=== PATIENT | male | born 1970 | race Caucasian/White ===

== ENCOUNTER 2017-09-15 11:08 | Emergency (ER) | payer BC ==
[2017-09-15 12:58] LABS: ABS Basophils 0.1 10^3/ul (0-0.2); ABS Eosinophils 0.2 10^3/ul (0-0.6); ABS Lymphocytes 1.6 10^3/ul (1.0-4.8); ABS Neutrophils 6.4 10^3/ul (1.5-7.7); ABS Nucleated RBC 0 10^3/ul; Eosinophil % 2.6 % (0-6); Hematocrit 46 % (42-52); Hemoglobin 15.8 g/dl (14.0-18.0); Lymphocyte % 17.2 % (25-47); Mean Corpuscular HGB Conc 34 g/dl (31-36); Mean Corpuscular Hemoglobin 31 pg (27-31); Mean Corpuscular Volume 89 fL (80-94); Mean Platelet Volume 11 um3 (7.4-10.4); Nucleated Red Blood Cells % 0.1; Platelet Count 256 10^3/ul (150-450); Red Blood Count 5.17 10^6/ul (4.0-5.4); Red Cell Distribution Width 13 % (10.5-15); White Blood Count 9.3 10^3/ul (3.5-10.8)
[2017-09-15 13:09] LABS: INR 0.94 (0.77-1.02)
[2017-09-15 13:12] LABS: EGFR Non-African American 76.9 (>60)
[2017-09-15] MEDS ORDERED: NS 0.9% 1000 ML* 1,000 ML BOLUS SCH (13:15)
[2017-09-15] MEDS ORDERED: Iohexol 300* (CONTRAST) 10 ML SDV IV ONE (13:21)
[2017-09-15 13:55] LABS: Urine Appearance Clear; Urine Blood Negative (Negative); Urine Color Yellow; Urine Ketones Negative (Negative); Urine Protein Negative (Negative); Urine Specific Gravity 1.015 (1.010-1.030); Urine Urobilinogen Negative (Negative)
--- NOTE | 2017-09-15 15:19 | RAD ---
INDICATION: Fall. Rib pain COMPARISON: CT abdomen pelvis June 02, 2015 TECHNIQUE: Axial source images were obtained from the thoracic inlet to the symphysis pubis following administration of oral and intravenous contrast. 148 mL Omnipaque 300 was utilized. Coronal and sagittal reconstructed images were acquired. CHEST FINDINGS: Neck/thyroid: The visualized neck to include the thyroid appear normal. Chest wall: There is a nondisplaced fracture of the lateral left ninth rib. There is no supraclavicular, infraclavicular, or axillary lymphadenopathy. Lungs : There are no pulmonary parenchymal masses or infiltrates. There is mild linear change right lung base which is most consistent with atelectasis. There is no pneumothorax. The pulmonary interstitium appears normal. There are no endobronchial lesions. Cardiomediastinal structures: The heart is normal in size. There is no pericardial effusion. There is no evidence of aortic aneurysm or dissection. The pulmonary vessels appear normal. There is no mediastinal or hilar adenopathy. The esophagus appears normal. Pleura : There are no pleural-based masses or effusions. ABDOMINAL/PELVIC FINDINGS: Liver: The liver is enlarged with findings of hepatic steatosis. There are no masses. There is no ductal dilatation. Gallbladder: There are no calcified gallstones. There is no evidence of wall thickening or pericholecystic fluid. Spleen: The spleen is normal in size. There are no masses. Pancreas: There is no evidence of pancreatic mass or ductal dilatation. Adrenal glands: There is no evidence of adrenal mass. Kidneys: The kidneys are normal in size and position. There are prompt nephrograms and there is prompt excretion bilaterally. There are no renal parenchymal masses. There is no evidence of nephrolithiasis. Adenopathy: There is no evidence of adenopathy by size criteria. Fluid collections: There are no free or localized fluid collections. Vessels:The aorta and IVC appear normal GI tract: There are no acute CT bowel findings. There is no obstruction. The stomach and small bowel appear normal. The lower GI tract is normal. The cecum, ileocecal valve, and terminal ileum appear normal. The appendix is visualized and appear normal. Pelvic organs: The prostate and seminal vesicles appear normal Bladder: There are no bladder masses. Abdominal and pelvic soft tissues: The extraperitoneal abdominal and pelvic soft tissues appear normal.. Osseous structures: There are no additional acute osseous findings. There is chronic L5 spondylolysis with a 3 mm anterolisthesis, unchanged IMPRESSION: 1. Nondisplaced lateral left ninth rib fracture. 2. Mild right basilar atelectasis. Lungs otherwise clear. No pneumothorax. 3. Hepatomegaly with hepatic steatosis. 4. No evidence of free fluid or traumatic visceral injury. 5. Chronic L5 spondylolysis
[2017-09-15 17:03] VITALS: BP 132/90
--- NOTE | 2017-09-15 21:55 | ED ---
Trung Santana Tiffany, scribed for Paola Kincaid MD on 09/15/17 at 1316 . Complex/Multi-Sys Presentation - HPI Summary HPI Summary: The patient is a 47 year old M presenting to [facility] accompanied by father with a chief complaint of left-sided flank pain s/p slipping on ice, falling on his left ribs, and hitting his left elbow yesterday. Symptoms aggravated by nothing. Symptoms alleviated by nothing. Patient denies head trauma, fever, shortness of breath, vomiting, left elbow pain, and coughing up blood. The patient had an x-ray from [facility]. He says that they found fluid underneath his right lung. He presented to the ED today to make sure his pain is due to the fall, and not due to his history of fatty liver. The patient takes medication for his hypothyroidism and receives monthly testosterone shots. His primary care provider is Dr. Moran. - History Of Current Complaint Chief Complaint: EDTraumaMultiple Time Seen by Provider: 09/15/17 12:31 Hx Obtained From: Patient Onset/Duration: Lasting Days - Since yesterday, Still Present Aggravating Factor(s): Nothing Alleviating Factor(s): Nothing Associated Signs And Symptoms: Positive: Other - NEGATIVE: head trauma, fever, shortness of breath, vomiting, left elbow pain, and coughing up blood - Allergies/Home Medications Allergies/Adverse Reactions: Allergies Allergy/AdvReac Type Severity Reaction Status Date / Time No Known Allergies Allergy Verified 09/15/17 12:43 Home Medications: Home Medications Levothyroxine TAB* [Synthroid TAB*] 100 mcg PO DAILY 09/15/17 [History Confirmed 09/15/17] Testosterone Cypionate 200 mg IM MONTHLY 09/15/17 [History Confirmed 09/15/17] PMH/Surg Hx/FS Hx/Imm Hx Previously Healthy: No Endocrine/Hematology History: Reports: Hx Thyroid Disease - Hypo Cardiovascular History: Denies: Hx Congestive Heart Failure, Hx Hypertension GI History: Reports: Other GI Disorders - Fatty liver Infectious Disease History: No Infectious Disease History: Reports: Hx Hepatitis - Heptatits C-received Harvoni treatment Denies: Traveled Outside the [place] in Last 30 Days - Family History Known Family History: Positive: Cardiac Disease - Father, Hypertension - Father , Diabetes - Father - Social History Alcohol Use: see comment Alcohol Amount: has not drank since 06/01/15 Hx Substance Use: No Substance Use Type: Reports: None Hx Tobacco Use: Yes Smoking Status (MU): Former Smoker Review of Systems Negative: Fever Negative: Shortness Of Breath, Cough Negative: Vomiting Positive: Other - Left-sided flank pain; NEGATIVE: head trauma, left elbow pain All Other Systems Reviewed And Are Negative: Yes Physical Exam - Summary Physical Exam Summary: Appearance: Ill-appearing, moderate pain distress, Well-nourished Skin: Erythematous, circular rash on bilateral dorsal hand and palm Head: Normal Head/Face inspection Eyes: Conjunctiva clear ENT: Normal inspection Neck: Supple, no nodes, no JVD. Respiratory: Lungs clear, Normal breath sounds, no respiratory distress Cardio: RRR, No murmur, pulses normal, brisk capillary refill Abdomen: soft, nontender Bowel sounds: present Musculoskeletal: Strength Intact/ ROM intact. No calf tenderness. No edema. Neuro: Alert, muscle tone normal, facial symmetry, speech normal, sensory/motor intact Psychological: Normal Triage Information Reviewed: Yes Vital Signs On Initial Exam: Initial Vitals Temp Pulse Resp BP Pulse Ox 97.8 F 101 20 164/99 98 09/15/17 11:10 09/15/17 11:10 09/15/17 11:10 09/15/17 11:10 09/15/17 11:10 Vital Signs Reviewed: Yes Diagnostics - Vital Signs Vital Signs Temp Pulse Resp BP Pulse Ox 09/15/17 11:10 97.8 F 101 20 164/99 98 - Laboratory Lab Results: Lab Results 09/15/17 09/15/17 09/15/17 Range/Units 12:37 12:37 12:37 WBC 9.3 (3.5-10.8) 10^3/ul RBC 5.17 (4.0-5.4) 10^6/ul Hgb 15.8 (14.0-18.0) g/dl Hct 46 (42-52) % MCV 89 (80-94) fL MCH 31 (27-31) pg MCHC 34 (31-36) g/dl RDW 13 (10.5-15) % Plt Count 256 (150-450) 10^3/ul MPV 11 H (7.4-10.4) um3 Neut % (Auto) 68.4 (38-83) % Lymph % (Auto) 17.2 L (25-47) % [place] % (Auto) 11.0 H (1-9) % Eos % (Auto) 2.6 (0-6) % Baso % (Auto) 0.8 (0-2) % Absolute Neuts (auto) 6.4 (1.5-7.7) 10^3/ul Absolute Lymphs (auto) 1.6 (1.0-4.8) 10^3/ul Absolute Monos (auto) 1.0 H (0-0.8) 10^3/ul Absolute Eos (auto) 0.2 (0-0.6) 10^3/ul Absolute Basos (auto) 0.1 (0-0.2) 10^3/ul Absolute Nucleated RBC 0 10^3/ul Nucleated RBC % 0.1 INR (Anticoag Therapy) 0.94 (0.77-1.02) Sodium 135 (133-145) mmol/L Potassium 4.4 (3.5-5.0) mmol/L Chloride 102 (101-111) mmol/L Carbon Dioxide 24 (22-32) mmol/L Anion Gap 9 (2-11) mmol/L BUN 20 (6-24) mg/dL Creatinine 1.04 (0.67-1.17) mg/dL Est GFR ( Amer) 98.9 (>60) Est GFR (Non-Af Amer) 76.9 (>60) BUN/Creatinine Ratio 19.2 (8-20) Glucose 99 (70-100) mg/dL Lactic Acid (0.5-2.0) mmol/L Calcium 9.8 (8.6-10.3) mg/dL Total Bilirubin 0.40 (0.2-1.0) mg/dL AST 21 (13-39) U/L ALT 28 (7-52) U/L Alkaline Phosphatase 57 (34-104) U/L Total Creatine Kinase 137 (10-223) U/L Troponin I 0.01 (<0.04) ng/mL Total Protein 7.7 (6.4-8.9) g/dL Albumin 4.5 (3.2-5.2) g/dL Globulin 3.2 (2-4) g/dL Albumin/Globulin Ratio 1.4 (1-3) Amylase 36 (29-103) U/L Lipase 48 (11.0-82.0) U/L Urine Color Urine Appearance Urine pH (5-9) Ur Specific [place] (1.010-1.030) Urine Protein (Negative) Urine Ketones (Negative) Urine Blood (Negative) Urine Nitrate (Negative) Urine Bilirubin (Negative) Urine Urobilinogen (Negative) Ur Leukocyte Esterase (Negative) Urine Glucose (Negative) 09/15/17 09/15/17 Range/Units 12:37 13:45 WBC (3.5-10.8) 10^3/ul RBC (4.0-5.4) 10^6/ul Hgb (14.0-18.0) g/dl Hct (42-52) % MCV (80-94) fL MCH (27-31) pg MCHC (31-36) g/dl RDW (10.5-15) % Plt Count (150-450) 10^3/ul MPV (7.4-10.4) um3 Neut % (Auto) (38-83) % Lymph % (Auto) (25-47) % [place] % (Auto) (1-9) % Eos % (Auto) (0-6) % Baso % (Auto) (0-2) % Absolute Neuts (auto) (1.5-7.7) 10^3/ul Absolute Lymphs (auto) (1.0-4.8) 10^3/ul Absolute Monos (auto) (0-0.8) 10^3/ul Absolute Eos (auto) (0-0.6) 10^3/ul Absolute Basos (auto) (0-0.2) 10^3/ul Absolute Nucleated RBC 10^3/ul Nucleated RBC % INR (Anticoag Therapy) (0.77-1.02) Sodium (133-145) mmol/L Potassium (3.5-5.0) mmol/L Chloride (101-111) mmol/L Carbon Dioxide (22-32) mmol/L Anion Gap (2-11) mmol/L BUN (6-24) mg/dL Creatinine (0.67-1.17) mg/dL Est GFR ( Amer) (>60) Est GFR (Non-Af Amer) (>60) BUN/Creatinine Ratio (8-20) Glucose (70-100) mg/dL Lactic Acid 1.2 (0.5-2.0) mmol/L Calcium (8.6-10.3) mg/dL Total Bilirubin (0.2-1.0) mg/dL AST (13-39) U/L ALT (7-52) U/L Alkaline Phosphatase (34-104) U/L Total Creatine Kinase (10-223) U/L Troponin I (<0.04) ng/mL Total Protein (6.4-8.9) g/dL Albumin (3.2-5.2) g/dL Globulin (2-4) g/dL Albumin/Globulin Ratio (1-3) Amylase (29-103) U/L Lipase (11.0-82.0) U/L Urine Color Yellow Urine Appearance Clear Urine pH 5.0 (5-9) Ur Specific [place] 1.015 (1.010-1.030) Urine Protein Negative (Negative) Urine Ketones Negative (Negative) Urine Blood Negative (Negative) Urine Nitrate Negative (Negative) Urine Bilirubin Negative (Negative) Urine Urobilinogen Negative (Negative) Ur Leukocyte Esterase Negative (Negative) Urine Glucose Negative (Negative) Result Diagrams: 09/15/17 12:37 09/15/17 12:37 Lab Statement: Any lab studies that have been ordered have been reviewed, and results considered in the medical decision making process. - CT Chest/Abd/Pel CT Interpretation Completed By: Radiologist - 1. Nondisplaced lateral left ninth rib fracture. 2. Mild right basilar atelectasis. Lungs otherwise clear. No pneumothorax. 3. Hepatomegaly with hepatic steatosis. 4. No evidence of free fluid or traumatic visceral injury. 5. Chronic L5 spondylolysis. ED physician has reviewed this radiology report. - EKG 11:58 Cardiac Rate: NL - 85 BPM EKG Rhythm: Sinus Rhythm ST Segment: Non-Specific Ectopy: None EKG Interpretation: nml AVIVCT, nml QTc, and nml axis. EKG Comparison: No Significant Change - From 06/05/15 Complex Multi-Symp Course/Dx Course Of Treatment: Allergies noted. High blood pressure noted. Patient medications reviewed this visit. Normal EKG. CT Chest/Abd/Pel reveals nondisplaced lateral left ninth rib fracture. Patient will be discharged. The patient is agreeable with this plan. Discharge - Discharge Plan Condition: Stable Disposition: HOME Prescriptions: HYDROcodone/ACETAMIN 5-325 MG* [[place]udson 5-325 TAB*] 1 tab PO Q4H PRN #[id number] tab MDD 6 PRN Reason: Pain Patient Education Materials: Rib Fracture (ED) Referrals: Kathy Moran MD [Primary Care Provider] - Additional Instructions: We have given you a copy of your CT report. You have a 9th rib fracture. Return to the ER if you have new or worsening symptoms. The documentation as recorded by the Trung lee Tiffany accurately reflects the service I personally performed and the decisions made by , Paola Kincaid MD.
== END 2017-09-15 17:02 | disposition home or self-care (01) ==
LOC: ED 11:08
DX: R10.9 Unspecified abdominal pain (principal); S22.32XA Fracture of one rib, left side, initial encounter for closed fracture; W00.0XXA Fall on same level due to ice and snow, initial encounter; Y92.9 Unspecified place or not applicable; J98.11 Atelectasis; K76.0 Fatty (change of) liver, not elsewhere classified; Z87.891 Personal history of nicotine dependence
CPT/HCPCS: 36415; 71260; 74177; 80053; 81003; 82150; 82550; 83605; 83690; 84484; 85025; 85610; 93005; 96360; 99283; Q9967

== ENCOUNTER 2018-07-08 14:35 | Emergency (ER) | payer BC ==
[2018-07-08 15:22] LABS: ABS Basophils 0.1 10^3/ul (0-0.2); ABS Eosinophils 0.2 10^3/ul (0-0.6); ABS Lymphocytes 1.9 10^3/ul (1.0-4.8); ABS Monocytes 0.8 10^3/ul (0-0.8); ABS Neutrophils 6.6 10^3/ul (1.5-7.7); ABS Nucleated RBC 0 10^3/ul; Eosinophil % 1.6 %; Hematocrit 49 % (42-52); Hemoglobin 16.8 g/dl (14.0-18.0); Lymphocyte % 20.2 %; Mean Corpuscular HGB Conc 34 g/dl (31-36); Mean Corpuscular Hemoglobin 31 pg (27-31); Mean Corpuscular Volume 90 fL (80-94); Mean Platelet Volume 10.7 fL (7.4-10.4); Nucleated Red Blood Cells % 0.1; Platelet Count 285 10^3/ul (150-450); Red Cell Distribution Width 14 % (10.5-15); White Blood Count 9.6 10^3/ul (3.5-10.8)
[2018-07-08 15:33] LABS: EGFR Non-African American 74.9 (>60)
[2018-07-08] MEDS ORDERED: Albuterol HFA INHALER* 8 gm MDI INH ONE (16:12)
--- NOTE | 2018-07-08 16:21 | ED ---
Hypertension - HPI Summary HPI Summary: Patient is a 48-year-old male with no significant PMH presenting to the ED with worsening hypertension readings at home. He states he was seen by his PCP who did not initially want to start him on a medication. Over the past week or so he has been having intermittent shortness of breath and today developed some chest tightness. This is nonradiating, rated a 2/10. Denies any diaphoresis, headache, fever, sweats, chills, visual changes, abdominal pain, nausea, vomiting. He is concerned that his hypertension readings are contributory to his symptoms. Family history of father of stent placements and hypertension. No personal cardiac history. He has seen Dr. Saleh in the past for one episode last year for chest pain and has a follow up in 3 weeks. - History of Current Complaint Chief Complaint: EDHypertension Stated Complaint: TIGHTNESS IN HIS CHEST Time Seen by Provider: 07/08/18 14:41 Hx Obtained From: Patient Onset/Duration: Started Hours Ago Timing: Constant Aggravating Factor(s): Nothing Alleviating Factor(s): Nothing Associated Signs & Symptoms: Chest Pain, Anxiety/Stress - Risk Factors Cardiac Risk Factors: Hypertension, Family History - Allergies/Home Medications Allergies/Adverse Reactions: Allergies Allergy/AdvReac Type Severity Reaction Status Date / Time No Known Allergies Allergy Verified 09/15/17 12:43 Home Medications: Home Medications Levothyroxine TAB* [Synthroid TAB*] 125 mcg PO DAILY 07/08/18 [History Confirmed 07/08/18] PMH/Surg Hx/FS Hx/Imm Hx Previously Healthy: Yes Endocrine/Hematology History: Reports: Hx Thyroid Disease - Hypo Cardiovascular History: Denies: Hx Congestive Heart Failure, Hx Hypertension GI History: Reports: Other GI Disorders - Fatty liver - Surgical History Surgery Procedure, Year, and Place: none - Immunization History Hx Pertussis Vaccination: No Immunizations Up to Date: Yes Infectious Disease History: No Infectious Disease History: Reports: Hx Hepatitis - Heptatits C-received Harvoni treatment Denies: Traveled Outside the [place] in Last 30 Days - Family History Known Family History: Positive: Cardiac Disease - Father, Hypertension - Father , Diabetes - Father - Social History Occupation: Employed Full-time Lives: With Family Alcohol Use: see comment Alcohol Amount: no ETOH since 06/01/15 Hx Substance Use: No Substance Use Type: Reports: None Substance Use Comment - Amount & Last Used: none Hx Tobacco Use: Yes Smoking Status (MU): Former Smoker Review of Systems Constitutional: Negative Negative: Fever, Chills, Fatigue, Skin Diaphoresis Positive: Chest Pain. Negative: Palpitations Positive: Shortness Of Breath. Negative: Cough Genitourinary: Negative Positive: no symptoms reported, pain Negative: Arthralgia, Myalgia Skin: Negative All Other Systems Reviewed And Are Negative: Yes Physical Exam Triage Information Reviewed: Yes Vital Signs On Initial Exam: Initial Vitals Temp Pulse Resp BP Pulse Ox 98.8 F 94 18 174/106 98 07/08/18 14:37 07/08/18 14:37 07/08/18 14:37 07/08/18 14:37 07/08/18 14:37 Vital Signs Reviewed: Yes Appearance: Positive: Well-Appearing, Well-Nourished Skin: Positive: Warm, Skin Color Reflects Adequate Perfusion Head/Face: Positive: Normal Head/Face Inspection Eyes: Positive: EOMI, TIMOTEO, Conjunctiva Clear Neck: Positive: No Lymphadenopathy Respiratory/Lung Sounds: Positive: Clear to Auscultation, Breath Sounds Present Cardiovascular: Positive: Pulses are Symmetrical in both Upper and Lower Extremities, S1, S2. Negative: Leg Edema Left, Leg Edema Right Neurological: Positive: Sensory/Motor Intact, Alert, Oriented to Person Place, Time, Speech Normal Psychiatric: Positive: Normal, Affect/Mood Appropriate AVPU Assessment: Alert Diagnostics - Vital Signs Vital Signs Temp Pulse Resp BP Pulse Ox 07/08/18 14:37 98.8 F 94 18 174/106 98 - Laboratory Lab Results: Lab Results 07/08/18 07/08/18 07/08/18 Range/Units 15:09 15:09 15:09 WBC 9.6 (3.5-10.8) 10^3/ul RBC 5.50 H (4.00-5.40) 10^6/ul Hgb 16.8 (14.0-18.0) g/dl Hct 49 (42-52) % MCV 90 (80-94) fL MCH 31 (27-31) pg MCHC 34 (31-36) g/dl RDW 14 (10.5-15) % Plt Count 285 (150-450) 10^3/ul MPV 10.7 H (7.4-10.4) fL Neut % (Auto) 68.8 % Lymph % (Auto) 20.2 % [place] % (Auto) 8.5 % Eos % (Auto) 1.6 % Baso % (Auto) 0.9 % Absolute Neuts (auto) 6.6 (1.5-7.7) 10^3/ul Absolute Lymphs (auto) 1.9 (1.0-4.8) 10^3/ul Absolute Monos (auto) 0.8 (0-0.8) 10^3/ul Absolute Eos (auto) 0.2 (0-0.6) 10^3/ul Absolute Basos (auto) 0.1 (0-0.2) 10^3/ul Absolute Nucleated RBC 0 10^3/ul Nucleated RBC % 0.1 Sodium 134 L (135-145) mmol/L Potassium 4.1 (3.5-5.0) mmol/L Chloride 100 L (101-111) mmol/L Carbon Dioxide 27 (22-32) mmol/L Anion Gap 7 (2-11) mmol/L BUN 14 (6-24) mg/dL Creatinine 1.06 (0.67-1.17) mg/dL Est GFR ( Amer) 90.6 (>60) Est GFR (Non-Af Amer) 74.9 (>60) BUN/Creatinine Ratio 13.2 (8-20) Glucose 93 (70-100) mg/dL Lactic Acid 0.9 (0.5-2.0) mmol/L Calcium 9.8 (8.6-10.3) mg/dL Magnesium 2.2 (1.9-2.7) mg/dL Total Bilirubin 0.80 (0.2-1.0) mg/dL AST 28 (13-39) U/L ALT 36 (7-52) U/L Alkaline Phosphatase 72 (34-104) U/L CK-MB (CK-2) 2.2 (0.6-6.3) ng/mL Troponin I 0.00 (<0.04) ng/mL Total Protein 8.0 (6.4-8.9) g/dL Albumin 4.7 (3.2-5.2) g/dL Globulin 3.3 (2-4) g/dL Albumin/Globulin Ratio 1.4 (1-3) Result Diagrams: 07/08/18 15:09 07/08/18 15:09 Lab Statement: Any lab studies that have been ordered have been reviewed, and results considered in the medical decision making process. Hypertension Course/Dx - Course Course Of Treatment: During the course of treatment, the patient is evaluated for hypertension, chest tightness which developed today and shortness of breath over the past week. Labs obtained which are all WNL including a troponin of 0.00. Chest x-ray obtained which shows no active cardiopulmonary disease. Patient appears well, nondiaphoretic and nontoxic in appearing. Alert and oriented 3. States he is having no pain at this time. Concerned with his hypertension readings. He has had high blood pressure at home for the past month and continues to be reading 175/98 and at one point 190/100. He was also elevated today in the ED at 174/106. While this reading could be due to presence in the emergency room, since he has had multiple high blood pressure readings, he will be started on a high blood pressure medication. Treatment options were explained to patient and he would like to begin on the blood pressure treatment at this time. He is also given an albuterol inhaler for shortness of breath, however his lungs are clear to auscultation on physical exam. He will be discharged home with atypical chest pain, hypertension and shortness of breath. - Diagnoses Differential Diagnosis/HQI PQRI: Hypertension, Hypertensive Urgency Provider Diagnoses: Atypical chest pain, Shortness of breath, Hypertension Discharge - Sign-Out/Discharge Documenting (check all that apply): Patient Departure - Discharge Plan Condition: Stable Disposition: HOME Prescriptions: Lisinopril TAB* [Prinivil TAB 5 MG*] 5 mg PO DAILY #30 tab Patient Education Materials: Lisinopril (By mouth) Referrals: Kathy Moran MD [Primary Care Provider] - Additional Instructions: Please keep your appointment with cardiology and follow-up We will start you on lisinopril 5 mg once daily, take in the morning If you develop any adverse effects or symptoms, return to the ED immediately Please follow-up with your PCP Albuterol inhaler for any shortness of breath - Billing Disposition and Condition Condition: STABLE Disposition: Home
[2018-07-08 16:27] VITALS: BP 168/89
== END 2018-07-08 16:26 | disposition home or self-care (01) ==
LOC: ED 14:35
DX: R07.89 Other chest pain (principal); R06.02 Shortness of breath; I10 Essential (primary) hypertension; E03.9 Hypothyroidism, unspecified; Z87.891 Personal history of nicotine dependence
CPT/HCPCS: 36415; 71046; 80053; 82553; 83605; 83735; 84484; 85025; 93005; 99282; A9270-GY

== ENCOUNTER 2024-01-01 14:30 | Inpatient (IN) ==
[2024-01-01] MEDS: NORMOSOL-R pH 7.4 SEPSIS* BAG 2,120 ML IV ONE (15:40)
[2024-01-01] MEDS: NORMOSOL R PH IV ONE (15:41)
[2024-01-01 16:17] LABS: Hematocrit 46.8 % (38-53); Hemoglobin 16.2 g/dL (13.2-16.3); Mean Corpuscular Hemoglobin 30.1 pg (27-33); Mean Corpuscular Hgb Conc 34.6 g/dL (31-36); Red Blood Count 5.38 10^6/uL (4.06-5.63); Red Cell Distribution Width 13.9 % (12-17); White Blood Count 4.6 10^3/uL (3.6-10.2)
[2024-01-01 16:18] LABS: Activated Partial Thrombo Time 29.1 seconds (26.0-38.0); INR 1.1 (0.83-1.13)
[2024-01-01 16:43] LABS: RBC Parasite Smear No Parasites Seen (No Parasite)
[2024-01-01 16:46] LABS: ABS Lymphocytes 0.2 10^3/uL (1.0-4.8); ABS Monocytes 0.3 10^3/uL (0.0-1.1); ABS Neutrophils 4.2 10^3/uL (1.5-7.6); ABS Nucleated RBC 0.01 10^3/ul; Lymphocyte % 3.3 %; Mean Platelet Volume 11.1 fL (7.5-11.2); Nucleated Red Blood Cells % 0.2 %/100WBC (0.0-0.8); Platelet Count 141 10^3/uL (150-450)
[2024-01-01 17:02] LABS: Urine Appearance Clear; Urine Bilirubin Negative (Negative); Urine Blood 1+ (Negative); Urine Color Yellow; Urine Glucose Negative (Negative); Urine Ketones Negative (Negative); Urine Nitrite Negative (Negative); Urine Protein 1+ (>=30 mg/dL) (Negative); Urine Urobilinogen Negative (Negative)
[2024-01-01 17:04] LABS: Urine Bacteria Absent /HPF (Absent); Urine Red Blood Cell 2+(6-10/hpf) /HPF (0-Trace); Urine Squamous Epithelial Cell Present /HPF (Absent); Urine White Blood Cell Trace(0-5/hpf) /HPF (0-Trace)
[2024-01-01 17:04] LABS: High Sensitivity Troponin 1 Hr 25 pg/mL (<20)
[2024-01-01 17:12] LABS: Albumin 4.4 g/dL (3.2-5.2); Albumin/Globulin Ratio 1.6 (1-3); C Reactive Protein 112.65 mg/L (<8.01); Calcium 9.1 mg/dL (8.6-10.3); Creatinine, Serum 1.52 mg/dL (0.67-1.17); Globulin 2.7 g/dL (2-4); Potassium 3.8 mmol/L (3.5-5.0); Total Bilirubin 1.1 mg/dL (0.2-1.0); Total Protein 7.1 g/dL (6.4-8.9); eGFR CKD-EPI 54.8 (>60)
[2024-01-01] MEDS: Lactated Ringers 1000 ml BAG 1,000 ML IV ONE (20:11)
[2024-01-01] MEDS: ZOSYN 3.375 GM x ONE DOSE over 30 miuntes IV (21:33)
[2024-01-01] MEDS ORDERED: Zosyn per Pharmacy NOTE FOLLOW UP SCH ×2 (22:00)
[2024-01-02] MEDS: ZOSYN 3.375 GM Q8H per EXTENDED INFUSION IV SCH (00:47)
[2024-01-02 06:35] LABS: ABS Lymphocytes 0.5 10^3/uL (1.0-4.8); ABS Monocytes 0.3 10^3/uL (0.0-1.1); ABS Neutrophils 3.6 10^3/uL (1.5-7.6); ABS Nucleated RBC 0.02 10^3/ul; Hematocrit 40.7 % (38-53); Hemoglobin 14.6 g/dL (13.2-16.3); Lymphocyte % 12.1 %; Mean Corpuscular Hgb Conc 35.8 g/dL (31-36); Mean Corpuscular Volume 86.7 fL (80-97); Mean Platelet Volume 11.1 fL (7.5-11.2); Nucleated Red Blood Cells % 0.5 %/100WBC (0.0-0.8); Platelet Count 120 10^3/uL (150-450); Red Blood Count 4.69 10^6/uL (4.06-5.63); Red Cell Distribution Width 13.7 % (12-17); White Blood Count 4.5 10^3/uL (3.6-10.2)
[2024-01-02 06:55] LABS: Albumin 3.7 g/dL (3.2-5.2); Albumin/Globulin Ratio 1.8 (1-3); C Reactive Protein 113.44 mg/L (<8.01); Calcium 7.8 mg/dL (8.6-10.3); Creatinine, Serum 1.4 mg/dL (0.67-1.17); Globulin 2.1 g/dL (2-4); Potassium 3.4 mmol/L (3.5-5.0); Total Bilirubin 0.8 mg/dL (0.2-1.0); Total Protein 5.8 g/dL (6.4-8.9); eGFR CKD-EPI 60.5 (>60)
[2024-01-02] MEDS: Potassium Chlor 20 meq TAB.ER PO ONE (08:08)
[2024-01-02] MEDS: Lactated Ringers 1000 ml BAG 1,000 ML IV SCH (13:16)
[2024-01-02 15:42] LABS: Osmolality Serum 265 mOsm/kg (275-295)
[2024-01-02 15:59] LABS: Anion Gap 9 mmol/L (2-16); Blood Urea Nitrogen 17 mg/dL (6-24); CO2 Carbon Dioxide 24 mmol/L (22-32); Calcium 7.9 mg/dL (8.6-10.3); Chloride 91 mmol/L (101-111); Creatinine, Serum 1.25 mg/dL (0.67-1.17); Glucose 182 mg/dL (70-100); Sodium 124 mmol/L (135-145); eGFR CKD-EPI 69.3 (>60)
[2024-01-02 18:52] LABS: Potassium, Whole Blood 3.9 mmol/L (3.4-4.5)
[2024-01-03] MEDS: Lactated Ringers 1000 ml BAG 1,000 ML IV SCH (01:06)
[2024-01-03 05:58] LABS: Albumin 3.6 g/dL (3.2-5.2); Albumin/Globulin Ratio 1.6 (1-3); Calcium 7.9 mg/dL (8.6-10.3); Creatinine, Serum 1.38 mg/dL (0.67-1.17); Globulin 2.2 g/dL (2-4); Magnesium 1.5 mg/dL (1.9-2.7); Potassium 3.6 mmol/L (3.5-5.0); Total Bilirubin 0.8 mg/dL (0.2-1.0); Total Protein 5.8 g/dL (6.4-8.9); eGFR CKD-EPI 61.5 (>60)
[2024-01-03 06:02] LABS: Hematocrit 41.8 % (38-53); Hemoglobin 14.5 g/dL (13.2-16.3); Mean Corpuscular Hemoglobin 30.3 pg (27-33); Mean Corpuscular Hgb Conc 34.7 g/dL (31-36); Mean Corpuscular Volume 87.3 fL (80-97); Red Blood Count 4.78 10^6/uL (4.06-5.63); Red Cell Distribution Width 13.8 % (12-17); White Blood Count 3.3 10^3/uL (3.6-10.2)
[2024-01-03 07:13] LABS: ABS Lymphocytes 0.2 10^3/uL (1.0-4.8); ABS Monocytes 0.2 10^3/uL (0.0-1.1); Lymphocyte % 6.2 %; Nucleated Red Blood Cells % 0.1 %/100WBC (0.0-0.8); Platelet Count 95 10^3/uL (150-450)
[2024-01-03] MEDS: NS 0.9% 1000 ml BAG 1,000 ML IV ONE (12:38)
[2024-01-03] MEDS: NS 0.9% 500 ml BAG 500 ML IV ONE (14:15)
[2024-01-03] MEDS: Potassium Chlor 20 meq TAB.ER PO ONE (14:17)
[2024-01-03] MEDS: Azithromycin 500 mg/250 ml NS 500 MG/250 ML BAG IVPB SCH (14:22)
[2024-01-03] MEDS: Magnesium Sulf 4 GM/100 ML IV 4,000 MG/100 ML BAG IVPB ONE (15:05)
[2024-01-03] MEDS: Enoxaparin 40 MG/0.4 ML SYR SUBCUT SCH (15:05)
[2024-01-03] MEDS: Iodixanol (CONTRAST) 320 MG/ML 100 ML SDV IV ONE (18:35)
[2024-01-04 06:54] LABS: Hemoglobin 13.4 g/dL (13.2-16.3); Mean Corpuscular Hemoglobin 30.6 pg (27-33); Mean Corpuscular Hgb Conc 35.1 g/dL (31-36); Mean Corpuscular Volume 87.1 fL (80-97); Mean Platelet Volume 11.9 fL (7.5-11.2); Platelet Count 108 10^3/uL (150-450); Red Blood Count 4.37 10^6/uL (4.06-5.63); Red Cell Distribution Width 14.2 % (12-17); White Blood Count 2.1 10^3/uL (3.6-10.2)
[2024-01-04 07:11] LABS: Albumin 3.3 g/dL (3.2-5.2); Albumin/Globulin Ratio 1.7 (1-3); Calcium 7.5 mg/dL (8.6-10.3); Creatinine, Serum 1.06 mg/dL (0.67-1.17); Potassium 3.9 mmol/L (3.5-5.0); Total Bilirubin 0.6 mg/dL (0.2-1.0); Total Protein 5.3 g/dL (6.4-8.9); eGFR CKD-EPI 84.4 (>60)
[2024-01-04] MEDS: Potassium Chlor 10 meq TAB PO ONE (08:28)
[2024-01-04 09:41] LABS: Urine Appearance Clear; Urine Bilirubin Negative (Negative); Urine Blood 3+ (Negative); Urine Color Light-Yellow; Urine Glucose Negative (Negative); Urine Ketones 1+ (Negative); Urine Nitrite Negative (Negative); Urine Protein 1+ (>=30 mg/dL) (Negative); Urine Specific Gravity 1.011 (1.002-1.030); Urine Urobilinogen Negative (Negative); Urine pH 6.5 (5.0-8.0)
[2024-01-04 10:18] LABS: Urine Bacteria Absent /HPF (Absent); Urine Red Blood Cell 3+(>10/hpf) /HPF (0-Trace); Urine White Blood Cell Trace(0-5/hpf) /HPF (0-Trace)
[2024-01-04 13:52] LABS: TSH Ultra Thyroid Stim Horm 1.2 mcIU/mL (0.34-5.60)
[2024-01-04 14:30] LABS: Urine Osmo 414 mOsm/kg (150-1150)
[2024-01-04] MEDS: Iohexol 300 (CONTRAST) 10 ML SDV IV ONE (15:44)
[2024-01-04 16:57] LABS: Anaplasma phagocytophilum Negative (Negative); B. miyamotoi PCR, B Negative (Negative); Babesia divergens/MO-1 Negative (Negative); Babesia ducani Negative (Negative); Ehrlichia chaffeensis Negative (Negative); Ehrlichia ewingii/canis Negative (Negative); Ehrlichia muris eauclairensis Negative (Negative)
[2024-01-04] MEDS: NS 0.9% 1000 ml BAG 1,000 ML IV ONE (20:27)
[2024-01-04] MEDS: cefTRIAXone 1 gm/50 mL D5W 1 GM/50 ML BAG IV SCH (20:29)
[2024-01-05 05:37] LABS: ABS Lymphocytes 0.7 10^3/uL (1.0-4.8); ABS Monocytes 0.3 10^3/uL (0.0-1.1); ABS Neutrophils 1.5 10^3/uL (1.5-7.6); ABS Nucleated RBC 0.02 10^3/ul; Eosinophil % 0.4 %; Hematocrit 39.3 % (38-53); Hemoglobin 13.7 g/dL (13.2-16.3); Lymphocyte % 28.1 %; Mean Corpuscular Hemoglobin 30.7 pg (27-33); Mean Corpuscular Hgb Conc 34.9 g/dL (31-36); Mean Corpuscular Volume 87.8 fL (80-97); Mean Platelet Volume 11.7 fL (7.5-11.2); Nucleated Red Blood Cells % 0.6 %/100WBC (0.0-0.8); Platelet Count 129 10^3/uL (150-450); Red Blood Count 4.47 10^6/uL (4.06-5.63); White Blood Count 2.5 10^3/uL (3.6-10.2)
[2024-01-05 06:18] LABS: Albumin 3.3 g/dL (3.2-5.2); Albumin/Globulin Ratio 1.5 (1-3); C Reactive Protein 76.33 mg/L (<8.01); Calcium 7.9 mg/dL (8.6-10.3); Creatinine, Serum 0.97 mg/dL (0.67-1.17); Globulin 2.2 g/dL (2-4); Magnesium 1.9 mg/dL (1.9-2.7); Potassium 3.5 mmol/L (3.5-5.0); Total Bilirubin 0.5 mg/dL (0.2-1.0); Total Protein 5.5 g/dL (6.4-8.9); eGFR CKD-EPI 93.9 (>60)
[2024-01-05] MEDS: Calcium Carb (TUMS) 500 mg CHEW TAB PO PRN (12:54)
[2024-01-05 13:09] LABS: Chlamydia trachomatis NAA Negative (Negative); Neisseria gonorrhoeae (GC) NAA Negative (Negative)
[2024-01-05] MEDS: Potassium Chlor 20 meq TAB.ER PO ONE (17:27)
[2024-01-06 05:24] LABS: ABS Eosinophils 0.1 10^3/uL (0.0-0.5); ABS Lymphocytes 1.2 10^3/uL (1.0-4.8); ABS Monocytes 0.8 10^3/uL (0.0-1.1); ABS Neutrophils 2.5 10^3/uL (1.5-7.6); ABS Nucleated RBC 0.01 10^3/ul; Eosinophil % 2.1 %; Hematocrit 40.4 % (38-53); Lymphocyte % 26.2 %; Mean Corpuscular Hemoglobin 30.3 pg (27-33); Mean Corpuscular Hgb Conc 34.5 g/dL (31-36); Mean Corpuscular Volume 87.7 fL (80-97); Mean Platelet Volume 10.8 fL (7.5-11.2); Nucleated Red Blood Cells % 0.1 %/100WBC (0.0-0.8); Platelet Count 173 10^3/uL (150-450); Red Blood Count 4.61 10^6/uL (4.06-5.63); Red Cell Distribution Width 14.3 % (12-17); White Blood Count 4.6 10^3/uL (3.6-10.2)
[2024-01-06 05:57] LABS: Albumin 3.6 g/dL (3.2-5.2); Albumin/Globulin Ratio 1.5 (1-3); Calcium 8.4 mg/dL (8.6-10.3); Globulin 2.4 g/dL (2-4); Potassium 4.1 mmol/L (3.5-5.0); Total Bilirubin 0.5 mg/dL (0.2-1.0); eGFR CKD-EPI 90.6 (>60)
[2024-01-06 07:19] LABS: Magnesium 1.9 mg/dL (1.9-2.7)
[2024-01-06 09:22] VITALS: BP 127/72
[2024-01-06 18:30] LABS: Hepatitis C Antibody Reactive (Negative)
[2024-01-06 19:33] LABS: Hepatitis B Surface Antigen Nonreactive (Nonreactive)
[2024-01-06 19:42] LABS: Hepatitis A Ab IgM Negative (Negative)
[2024-01-06 19:43] LABS: Hepatitis B Core IgM Nonreactive (Nonreactive)
[2024-01-07 11:43] LABS: Herpes Simplex Virus I IgG AB Positive (Negative); Herpes Simplex Virus II IgG AB Negative (Negative)
== END 2024-01-06 12:45 | disposition home or self-care (01) | DRG 720 ==
LOC: ED 14:30 → EDHOLD 14:30 → SUATTDRO 18:38 → MED 01-02 03:36 → SUATTDRO 01-03 13:41
PROVIDERS: ADMIT Internal Medicine; ATTEND Family Medicine